=== PATIENT | female | born 1995 | race Caucasian/White ===

== ENCOUNTER 2023-08-29 18:11 | Emergency (ER) | payer BC, OTHER ==
[~2023-08-29 18:11] MED LIST: Iopamidol-370 76% 500 ML MDV (1 ML CHARGE) ONE
[2023-08-29] MEDS ORDERED: Morphine 4 MG/ML VIAL ONE (18:30)
[2023-08-29] MEDS ORDERED: Ondansetron PF 4 MG/2 ML Vial ONE (18:30)
[2023-08-29 18:38] LABS: #Basophils 0.1 thou/uL (0.0-0.2); #Eosinphils 0.1 thou/uL (0.0-0.7); #Monocytes 0.7 thou/uL (0.11-0.59); #Neutrophils 10.2 thou/uL (1.40-6.50); %Basophils 0.9 % (0.0-1.0); %Eosinophils 0.9 % (0.0-10.0); %Lymphocytes 25.4 % (21.0-51.0); %Monocytes 4.8 % (0.0-10.0); %Neutrophils 67.7 % (42.0-75.0); Hematocrit 41.5 % (36.0-47.0); Hemoglobin 14.2 g/dL (12.0-16.0); Mean Corpuscular HGB CONC 34.2 g/dL (32.0-36.0); Mean Corpuscular Hemoglobin 30.7 pg (27.0-31.0); Mean Corpuscular Volume 89.8 fl (78.0-98.0); Mean Platelet Volume 10.6 fL (7.4-10.4); Platelet Count 325 10x3/uL (130-400); RBC Distribution Width 11.6 % (11.5-14.5); Red Blood Cell (RBC) Count 4.62 mill/uL (4.20-5.40); White Blood Cell (WBC) Count 15.1 10x3/uL (4.8-10.8)
[2023-08-29 18:46] LABS: BHCG - Serum Negative (NEGATIVE); Pregs Control Background? CLEAR/WHITE (CLR/WHITE); Pregs Control Bar Appear? YES (CONTROL BAR)
[2023-08-29] MEDS ORDERED: Dicyclomine 20 MG/2 ML VIAL ONE (19:10)
[2023-08-29 19:13] LABS: Alkaline Phosphatase 55 U/L (40-110); Anion Gap 19 mmol/L (10-20); Bilirubin, Total 1.1 mg/dL (0.2-1.2); Calc. Creatinine Clearance 0 mL/min (70-130); Carbon Dioxide 17 mmol/L (22-29); Chloride 104 mmol/L (98-107); Estimated GFR 91; Globulin 3.4 g/dL (2.4-3.5); Glucose 105 mg/dL (70-105); Potassium 3.2 mmol/L (3.5-5.1); Protein, Total 8.4 g/dL (6.0-8.3); Sodium 137 mmol/L (136-145)
[2023-08-29 19:14] LABS: BUN (Urea Nitrogen) 13 mg/dL (7.0-18.7)
[2023-08-29 19:15] LABS: AST (SGOT) 16 U/L (5-34)
[2023-08-29 19:16] LABS: ALT (SGPT) 21 U/L (8-55); Lipase Less than 4 U/L (8-78)
[2023-08-29 20:12] LABS: Bilirubin Negative (Negative); Blood, Urine Negative (Negative); CAUTI Indications for Culture Pelvic or flank pain; Clarity Clear (Clear); Glucose, Urine (Dipstick) Normal (Negative); Ketone, Urine Greater than 150 mg/dL (Negative); Leukocyte Negative Leu/uL (Negative); Nitrite Negative (Negative); Protein, Urine (Dipstick) 50 mg/dL (Neg-Trace); RBC/HPF 0-3 HPF (0-3); Squamous Epithelial 0-3 HPF (0-3); Urobilinogen 3 mg/dL (Less than 2); WBC/HPF 0-3 HPF (0-3)
[2023-08-29 20:13] LABS: Bacteria/HPF 1+ HPF (None Seen); Specific Gravity, Urine 1.049 (1.002-1.036)
[2023-08-29 20:15] LABS: Urine Culture Reflex No No
== END 2023-08-29 20:35 | disposition home or self-care (01) ==
LOC: ERS 18:11
DX: R10.33 Periumbilical pain (principal)
CPT/HCPCS: 74177; 80053; 81001; 83690; 84703; 85025; 93005; 96372; 96374; 96375; J2270; J2405; Q9967